=== PATIENT | male | born 1985 | race Caucasian/White ===

== ENCOUNTER 2017-11-02 08:19 | Emergency (ER) | payer OTHER ==
[2017-11-02 08:38] VITALS: BP 122/64
--- NOTE | 2017-11-02 08:46 | UC ---
Throat Pain/Nasal Yovani HPI - HPI Summary HPI Summary: cough / chest congestion x 4 days + sore throat , no fever, no chills + nasal congestion , pnd - History of Current Complaint Chief Complaint: UCRespiratory Stated Complaint: COUGH SORE THROAT Time Seen by Provider: 11/02/17 08:29 Hx Obtained From: Patient Onset/Duration: Gradual Onset, Lasting Days - 4, Still Present Severity: Moderate Cough: Nonproductive Associated Signs & Symptoms: Positive: Nasal Discharge. Negative: Sinus Discomfort, Fever, Rash - Allergies/Home Medications Allergies/Adverse Reactions: Allergies Allergy/AdvReac Type Severity Reaction Status Date / Time Amoxicillin Allergy Unknown Verified 11/02/17 08:39 Reaction Details Aspirin Allergy Unknown Verified 11/02/17 08:39 Reaction Details Cefaclor [From [facility]] Allergy Unknown Verified 11/02/17 08:39 Reaction Details Erythromycin Allergy Unknown Verified 11/02/17 08:39 Reaction Details Penicillins Allergy Unknown Verified 11/02/17 08:39 Reaction Details Home Medications: Home Medications Albuterol HFA INHALER* [Ventolin HFA Inhaler*] 2 puff INH Q4H PRN 11/02/17 [ History Confirmed 11/02/17] Fluticasone-Salmeterol 250-50* [Advair Diskus 250-50*] 1 puff INH BID 11/02/17 [ History Confirmed 11/02/17] oxyCODONE TAB* [Roxycodone TAB 5 mg*] 5 mg PO Q6H PRN 11/02/17 [History Confirmed 11/02/17] PMH/Surg Hx/FS Hx/Imm Hx Respiratory History: Asthma - Surgical History Surgical History: Yes Surgery Procedure, Year, and Place: pilon fracture. tonsillectomy - Family History Known Family History: Negative: Diabetes - Social History Alcohol Use: Occasionally Substance Use Type: None Smoking Status (MU): Never Smoked Tobacco Review of Systems Constitutional: Negative Skin: Negative Eyes: Negative ENT: Sore Throat, Nasal Discharge Respiratory: Cough Cardiovascular: Negative Gastrointestinal: Negative Is Patient Immunocompromised?: No All Other Systems Reviewed And Are Negative: Yes Physical Exam Triage Information Reviewed: Yes Appearance: Well-Appearing, No Pain Distress, Well-Nourished Vital Signs: Initial Vital Signs Temp 99 F 11/02/17 08:34 Pulse 67 11/02/17 08:34 Resp 18 11/02/17 08:34 BP 122/64 11/02/17 08:34 Pulse Ox 98 11/02/17 08:34 Vital Signs Reviewed: Yes Eyes: Positive: Conjunctiva Clear ENT: Positive: Normal ENT inspection, Hearing grossly normal, Pharynx normal, Nasal congestion, Nasal drainage, TMs normal Neck: Positive: Supple, Nontender, No Lymphadenopathy Respiratory: Positive: Chest non-tender, Lungs clear, Normal breath sounds Cardiovascular: Positive: RRR, No Murmur, Pulses Normal Abdominal Exam: Normal Skin Exam: Normal Throat Pain/Nasal Course/Dx - Differential Dx/Diagnosis Provider Diagnoses: URI Discharge - Discharge Plan Condition: Stable Disposition: HOME Patient Education Materials: Upper Respiratory Infection (ED) Referrals: LENORE Escalante [Primary Care Provider] - If Needed
== END 2017-11-02 08:48 | disposition home or self-care (01) ==
LOC: UCCORT 08:19
DX: J06.9 Acute upper respiratory infection, unspecified (principal); J45.909 Unspecified asthma, uncomplicated; Z72.89 Other problems related to lifestyle
CPT/HCPCS: 99201; G0463

== ENCOUNTER 2017-11-23 07:54 | Day surgery (SDC) | payer OTHER ==
[~2017-11-23 07:54] MED LIST: Buffered Lidocaine 0.9% SYRIN* 5 ML/SYR SYRINGE INTRADERM ONE; Dexamethasone IV* 4 MG/ML 1 ML (4 MG) IV SLOW PU ONE; Famotidine IV* 10 MG/ML 2 ML (20 mg) IV ONE
[2017-11-23] MEDS ORDERED: Dexamethasone IV* 4 MG/ML 1 ML (4 MG) ONE (08:00)
[2017-11-23] MEDS ORDERED: Famotidine IV* 10 MG/ML 2 ML (20 mg) ONE (08:00)
[2017-11-23] MEDS ORDERED: Buffered Lidocaine 0.9% SYRIN* 5 ML/SYR SYRINGE ONE ×2 (08:00→10:21)
[2017-11-23] MEDS ORDERED: Clindamycin 900 MG IVPREMIX(* 900 MG/50 ML SDV IV ONE (08:00)
[2017-11-23] MEDS ORDERED: Bupivacaine 0.5% SDV PF* 10-30ML VIAL ONE (10:28)
[2017-11-23] MEDS ORDERED: HYDROcodone/ACETAMIN 5-325 MG* 1 TAB PO PRN (10:31)
[2017-11-23] MEDS ORDERED: DiMENhydriNATE IV* 50 MG/ML VIAL IV PUSH PRN (10:31)
[2017-11-23] MEDS ORDERED: fentaNYL* 50 MCG/ML 2 ML VIAL (100 MCG VIAL) IV PRN (10:31)
[2017-11-23] MEDS ORDERED: PROCHLORPERAZINE INJ 5 MG/ML 2 ML VIAL IV PRN (10:31)
[2017-11-23] MEDS ORDERED: Naloxone* 0.4 MG/ML 1 ML VIAL IV PRN (10:31)
[2017-11-23] MEDS ORDERED: oxyCODONE/Acetamin 5/325 MG* TAB PO PRN (10:31)
[2017-11-23] MEDS ORDERED: Midazolam* 1 MG/ML 2 ML VIAL (2 MG) ONE (10:34)
[2017-11-23] MEDS ORDERED: Propofol* 10 MG/ML 20 ML BTL IV PUSH ONE (10:34)
[2017-11-23] MEDS ORDERED: fentaNYL* 50 MCG/ML 5 ML VIAL (250 MCG VIAL) ONE (10:34)
[2017-11-23] MEDS ORDERED: Lidocaine 2% PF * 5 ML VIAL ONE (10:34)
[2017-11-23] MEDS ORDERED: Ketorolac INJ* 30 MG/ML 1 ML VIAL ONE (11:03)
[2017-11-23] MEDS ORDERED: fentaNYL* 50 MCG/ML 2 ML VIAL (100 MCG VIAL) ONE ×3 (12:08→14:16)
[2017-11-23] MEDS ORDERED: KETAMINE HCL* 50 MG/ML 10 ML VIAL ONE (12:09)
[2017-11-23] MEDS ORDERED: Ondansetron INJ* 2 MG/ML VIAL ONE (12:20)
[2017-11-23] MEDS ORDERED: Flumazenil* 0.1 MG/ML 5 ML MDV ONE (13:32)
[2017-11-23] MEDS ORDERED: Metoprolol Tartrate IV* 1 MG/ML 5 ML VIAL ONE (14:31)
[2017-11-23] MEDS: Metoprolol Tartrate IV* 1 MG/ML 5 ML VIAL IV PRN ×2 (14:36→14:44)
[2017-11-23] MEDS ORDERED: oxyCODONE/Acetamin 5/325 MG* TAB ONE (15:27)
[2017-11-23 18:35] VITALS: BP 126/76
--- NOTE | 2017-11-24 07:16 | RAD ---
INDICATION: Left ankle removal of plate effusion tibial bone. COMPARISON: Comparison is made with a prior CT of the ankle from November 02, 2017. TECHNIQUE: 5.3 seconds of intermittent fluoroscopic guidance were provided and a single lateral film of the left ankle was obtained in the operating room. FINDINGS: The films demonstrates surgical intervention 2 surgical screws which project over the distal tibia. IMPRESSION: INTRAOPERATIVE CONTROL FILMS. CPT II Codes: 6045F
--- NOTE | 2017-11-24 13:33 | OP ---
OPERATIVE REPORT: DATE OF OPERATION: 11/23/17 DATE OF : 89 ATTENDING SURGEON: Taiwo Vasquez MD DRAMATIC DIRECTOR: Daily Sen PA-C DESCRIPTION OF PROCEDURE: The patient was taken to the operating room, where a longitudinal incision was made over the distal tibia. We exposed the length of the tibial plate with the electrocautery. The screws were removed with star and regular hex head screwdrivers and the plate removed as well. We then used a lamina field operations coordinator to open the tibiotalar joint. We curetted out any loose bone fragment s and debrided from the tibiotalar joint. Cultures were sent. Power bur was also used to prepare th e joint for arthrodesis. There was a bone defect probably 15-mm in thickness and so we shaped a femo ral head cancellous core to fit this defect. We also harvested tibial bone graft proximally at Gerdy' s tubercle, this was through a 4-cm longitudinal incision making a lateral corticotomy with a power b ur. Curetting the autograft in with the femoral head and some chips of allograft and DBX bone putty. We thoroughly grafted the defect. Proximally, we placed allograft chips into the tibial defect, david sing the periosteum with 2-0 Vicryl and lisa for the skin. We then fixed the tibiotalar fusion with paired 6.5 cannulated screws from the lateral talus up to th e medial tibial cortex. Good fixation and compression was obtained. We thoroughly irrigated closing with 0 Vicryl deep, 2-0 Vicryl subcu and lisa for the skin and a compression dressing and plaster splint applied. [id number]/[facility] [place] #: [id number]
== END 2017-11-23 18:30 | disposition home or self-care (01) ==
LOC: OR 07:54
PROVIDERS: ATTEND Orthopaedic Surgery
DX: M19.172 Post-traumatic osteoarthritis, left ankle and foot (principal); Z87.891 Personal history of nicotine dependence; J45.909 Unspecified asthma, uncomplicated; F41.8 Other specified anxiety disorders
CPT/HCPCS: 76000; 87070; 87073; 87205; 88300; 88304; 88311; A9270-GY; C1713; C1776; C9359; J1100; J1885; J2250; J2405; J2704; J3010; J3490

== ENCOUNTER 2018-07-20 15:51 | Emergency (ER) | payer OTHER ==
[2018-07-20 16:15] VITALS: BP 140/79
--- NOTE | 2018-07-20 16:37 | UC ---
Abdominal Pain Male HPI - HPI Summary HPI Summary: 33-year-old male comes in today with a complaint of abdominal pain. Pain started about a week ago tried around his bellybutton. It is worse with activity and lifting. Gets better with rest. No fevers or chills. Patient's been able to eat and drink is urinating normally he has normal bowel movements. I worse it's moderate to severe at times it is ALMOST GONE. He's had this on and off since he was 18 years old. He'll come for a few hours a few days and then go away. He has no prior abdominal surgeries. - History of Current Complaint Chief Complaint: UCGeneralIllness Stated Complaint: TENDER STOMACH (MID) Time Seen by Provider: 07/20/18 16:20 Pain Intensity: 4 - Allergies/Home Medications Allergies/Adverse Reactions: Allergies Allergy/AdvReac Type Severity Reaction Status Date / Time amoxicillin Allergy Unknown Verified 07/20/18 16:07 Reaction Details aspirin Allergy Unknown Verified 07/20/18 16:07 Reaction Details cefaclor [From Ceclor] Allergy Unknown Verified 07/20/18 16:07 Reaction Details erythromycin base Allergy Unknown Verified 07/20/18 16:07 Reaction Details Penicillins Allergy Unknown Verified 07/20/18 16:07 Reaction Details Home Medications: Home Medications Fluticasone/Vilanterol MDI(NF) [Breo Ellipta MDI 100/25(NF)] 1 puff DAILY [History Confirmed 07/20/18] PMH/Surg Hx/FS Hx/Imm Hx Previously Healthy: Yes - Surgical History Surgical History: Yes Surgery Procedure, Year, and Place: pilon fracture left ankle, 2015, hardware removed left ankle 11/2017-ankle fusion. tonsillectomy age 18. throat dilitation, 3-4 yrs ago - Family History Known Family History: Negative: Diabetes - Social History Alcohol Use: Occasionally Alcohol Amount: 3 per week Substance Use Type: None Smoking Status (MU): Former Smoker Amount Used/How Often: pack q 3 days for 5 yrs When Did the Patient Quit Smoking/Using Tobacco: 2010 Review of Systems Constitutional: Negative Skin: Negative Eyes: Negative ENT: Negative Respiratory: Negative Cardiovascular: Negative Gastrointestinal: Other - SEE HPI Genitourinary: Negative Motor: Negative Neurovascular: Negative Musculoskeletal: Negative Neurological: Negative Psychological: Negative Is Patient Immunocompromised?: No All Other Systems Reviewed And Are Negative: Yes Physical Exam Triage Information Reviewed: Yes Appearance: Well-Appearing, No Pain Distress, Well-Nourished Vital Signs: Initial Vital Signs Temp 98.1 F 07/20/18 16:09 Pulse 80 07/20/18 16:09 Resp 16 07/20/18 16:09 BP 140/79 07/20/18 16:09 Pulse Ox 97 07/20/18 16:09 Vital Signs Reviewed: Yes Eye Exam: Normal Eyes: Positive: Conjunctiva Clear ENT: Positive: Pharynx normal Neck exam: Normal Neck: Positive: Supple Respiratory: Positive: No respiratory distress Abdomen Description: Positive: Other: - Patient's tenderness is around his umbilicus. There is mild swelling in the area. It feels like an umbilical hernia. I manipulated it and it feels like it reduced. At its largest the area is approximately 5 cm in diameter. Bowel Sounds: Positive: Present Musculoskeletal Exam: Normal Musculoskeletal: Positive: Strength Intact, ROM Intact Neurological Exam: Normal Neurological: Positive: Alert, Muscle Tone Normal Psychological Exam: Normal Psychological: Positive: Age Appropriate Behavior Skin Exam: Normal Abd Pain Male Course/Dx - Course Course Of Treatment: No signs of incarcerated or strangulate it hernia at this time. Patient is not tender in the right upper quadrant or right lower quadrant to indicate gallbladder or the appendix causes pain. Tenderness was directly over the mass in the umbilical area consistent with an non- strangulated umbilical hernia that is reducible. I discussed hernias and the plan is to follow-up with surgery. I discussed that if he got worse and worse pain fevers vomiting he needed to go to the emergency department. - Differential Dx/Clinical Impression Provider Diagnoses: UMBILICAL HERNIA. ABDOMINAL PAIN Discharge - Sign-Out/Discharge Documenting (check all that apply): Patient Departure All imaging exams completed and their final reports reviewed: No Studies - Discharge Plan Condition: Stable Disposition: HOME Patient Education Materials: Umbilical Hernia (ED), Abdominal Pain (ED) Referrals: Valentin Noel MD [Medical Doctor] - Meet Cárdenas [Medical Doctor] - Additional Instructions: FOLLOW UP WITH SURGERY. GO TO THE EMERGENCY DEPARTMENT FOR ANY WORSENING OF YOUR CONDITION; PAIN, FEVER , VOMITING, YOU FEEL ILL OR QUESTIONS OR CONCERNS. - Billing Disposition and Condition Condition: STABLE Disposition: Home
== END 2018-07-20 16:51 | disposition home or self-care (01) ==
LOC: UCCORT 15:51
DX: R10.33 Periumbilical pain (principal); K42.9 Umbilical hernia without obstruction or gangrene; Z88.0 Allergy status to penicillin; Z88.6 Allergy status to analgesic agent; Z88.1 Allergy status to other antibiotic agents; Z87.891 Personal history of nicotine dependence
CPT/HCPCS: 99211; G0463

== ENCOUNTER 2019-07-16 18:49 | Emergency (ER) | payer OTHER ==
[2019-07-16 19:03] VITALS: BP 128/81
--- NOTE | 2019-07-16 19:09 | UC ---
Ear Complaint HPI - HPI Summary HPI Summary: 34-year-old male with a left earache over the past 2 or 3 days. He's had no upper respiratory illness symptoms. No history of ear infections however he does have a long list of antibiotic allergies. - History of Current Complaint Chief Complaint: UCEar Stated Complaint: EAR PAIN Time Seen by Provider: 07/16/19 19:00 Hx Obtained From: Patient Onset/Duration: Gradual Onset Severity Initially: Mild Severity Currently: Mild Pain Intensity: 5 Aggravating Factors: Nothing Alleviating Factors: Nothing - Patient did state that he had an itchy ear but he did not dig at it. - Allergies/Home Medications Allergies/Adverse Reactions: Allergies Allergy/AdvReac Type Severity Reaction Status Date / Time amoxicillin Allergy Unknown Verified 07/16/19 19:03 Reaction Details aspirin Allergy Unknown Verified 07/16/19 19:03 Reaction Details cefaclor [From Ceclor] Allergy Unknown Verified 07/16/19 19:03 Reaction Details erythromycin base Allergy Unknown Verified 07/16/19 19:03 Reaction Details Penicillins Allergy Unknown Verified 07/16/19 19:03 Reaction Details PMH/Surg Hx/FS Hx/Imm Hx Previously Healthy: Yes Respiratory History: Asthma Psychological History: Anxiety - Surgical History Surgical History: Yes Surgery Procedure, Year, and Place: pilon fracture left ankle, 2016, hardware removed left ankle 11/2017-ankle fusion. tonsillectomy age 18. throat dilitation, 3-4 yrs ago - Family History Known Family History: Negative: Diabetes - Social History Alcohol Use: Occasionally Alcohol Amount: 3 per week Substance Use Type: None Smoking Status (MU): Former Smoker Amount Used/How Often: pack q 3 days for 5 yrs When Did the Patient Quit Smoking/Using Tobacco: 2010 Review of Systems All Other Systems Reviewed And Are Negative: Yes ENT: Positive: Ear Ache - Left earache for the past 2 or 3 days Is Patient Immunocompromised?: No Physical Exam Triage Information Reviewed: Yes Appearance: Well-Appearing, No Pain Distress, Well-Nourished Vital Signs: Initial Vital Signs Temp 98.7 F 07/16/19 19:00 Pulse 81 07/16/19 19:00 Resp 15 07/16/19 19:00 BP 128/81 07/16/19 19:00 Pulse Ox 100 07/16/19 19:00 Vital Signs Reviewed: Yes Eyes: Positive: Conjunctiva Clear ENT: Positive: Pharynx normal, TM red - Left tympanic membrane with erythema and bulging., Other Neck: Positive: Supple, Nontender, No Lymphadenopathy Respiratory: Positive: Lungs clear, Normal breath sounds, No respiratory distress, No accessory muscle use Cardiovascular: Positive: RRR, No Murmur, Pulses Normal, Brisk Capillary Refill Musculoskeletal Exam: Normal Neurological Exam: Normal Psychological Exam: Normal Skin Exam: Normal Ear Complaint Course/Dx - Course Course Of Treatment: Patient is comfortable here. I am going to put him on doxycycline 100 mg by mouth twice a day 10 days with the first dose being given here at the urgent care Center. He is to follow-up with his primary care provider in 3 or 4 days if no improvement. He may take Tylenol for pain. - Differential Dx/Diagnosis Provider Diagnosis: Left otitis media Discharge ED - Sign-Out/Discharge Documenting (check all that apply): Patient Departure All imaging exams completed and their final reports reviewed: No Studies - Discharge Plan Condition: Good Disposition: HOME Prescriptions: DOXYcycline CAP(*) [DOXYcycline 100MG CAP(*)] 100 mg PO BID 10 Days #20 cap Patient Education Materials: Ear Infection (ED) Referrals: Federico Ma PA [Primary Care Provider] - Additional Instructions: Increase fluids, no dairy products, antacids or multivitamins 2 hours before you take the doxycycline or 2 hours after bridge be sure and take it with food. Follow-up with your primary care provider if no improvement in 3 or 4 days. May take Tylenol for pain. - Billing Disposition and Condition Condition: GOOD Disposition: Home
[2019-07-16] MEDS ORDERED: DOXYcycline CAP(*) 100 MG PO ONE (19:11)
== END 2019-07-16 19:17 | disposition home or self-care (01) ==
LOC: UCCORT 18:49
DX: H66.92 Otitis media, unspecified, left ear (principal); J45.909 Unspecified asthma, uncomplicated; Z88.0 Allergy status to penicillin; Z88.1 Allergy status to other antibiotic agents; Z88.8 Allergy status to other drugs, medicaments and biological substances; Z87.891 Personal history of nicotine dependence
CPT/HCPCS: 99212; A9270-GY; G0463

== ENCOUNTER 2019-11-29 07:56 | Emergency (ER) | payer OTHER ==
[2019-11-29 08:23] VITALS: BP 111/77
[2019-11-29 08:38] LABS: Influenza A Molecular POSITIVE (Negative)
--- NOTE | 2019-11-29 08:47 | UC ---
Respiratory Complaint HPI - HPI Summary HPI Summary: 34 y/o male with medical hx of asthma 2 days hx of productive cough , sore throat, fever chills, and severe body aches been taking otc meds and Tylenol with minimal improvements - History of Current Complaint Chief Complaint: UCGeneralIllness Stated Complaint: COUGH, CONGESTION, ACHY Time Seen by Provider: 11/29/19 08:27 Hx Obtained From: Patient Onset/Duration: Gradual Onset, Lasting Days - 2, Still Present Timing: Constant Severity Initially: Moderate Severity Currently: Moderate Pain Intensity: 3 Character: Cough: Productive Aggravating Factors: Exertion, Deep Breaths Alleviating Factors: Nothing Associated Signs And Symptoms: Positive: Fever, Chills, URI, Nasal Congestion - Allergies/Home Medications Allergies/Adverse Reactions: Allergies Allergy/AdvReac Type Severity Reaction Status Date / Time amoxicillin Allergy Unknown Verified 11/29/19 08:23 Reaction Details aspirin Allergy Unknown Verified 11/29/19 08:23 Reaction Details cefaclor [From Ceclor] Allergy Unknown Verified 11/29/19 08:23 Reaction Details erythromycin base Allergy Unknown Verified 11/29/19 08:23 Reaction Details Penicillins Allergy Unknown Verified 11/29/19 08:23 Reaction Details Home Medications: Home Medications Albuterol 0.5% CONC NEB.CHEVY* [Albuterol 0.5ol*] 1 mg .SEE ORDER ONCE PRN [History Confirmed 11/29/19] Fluticasone/Vilanterol MDI(NF) [Breo Ellipta MDI (NF)] 1 puff INH DAILY [History Confirmed 11/29/19] PMH/Surg Hx/FS Hx/Imm Hx Respiratory History: Asthma Psychological History: Anxiety - Surgical History Surgical History: Yes Surgery Procedure, Year, and Place: pilon fracture left ankle, 2016, hardware removed left ankle 11/2017-ankle fusion. tonsillectomy age 18. throat dilitation, 3-4 yrs ago - Family History Known Family History: Negative: Diabetes - Social History Alcohol Use: Rare Alcohol Amount: 3 per week Substance Use Type: None Smoking Status (MU): Former Smoker Amount Used/How Often: pack q 3 days for 5 yrs When Did the Patient Quit Smoking/Using Tobacco: 2010 Review of Systems All Other Systems Reviewed And Are Negative: Yes Constitutional: Positive: Fever, Chills, Fatigue Skin: Positive: Negative Eyes: Positive: Negative ENT: Positive: Sore Throat, Nasal Discharge Respiratory: Positive: Cough Musculoskeletal: Positive: Arthralgia, Myalgia Is Patient Immunocompromised?: No Physical Exam Triage Information Reviewed: Yes Appearance: Well-Appearing, No Pain Distress, Well-Nourished Vital Signs: Initial Vital Signs Temp 100.1 F 11/29/19 08:18 Pulse 99 11/29/19 08:18 Resp 18 11/29/19 08:18 BP 111/77 11/29/19 08:18 Pulse Ox 98 11/29/19 08:18 Vital Signs Reviewed: Yes Eye Exam: Normal Eyes: Positive: Conjunctiva Clear ENT: Positive: Normal ENT inspection, Hearing grossly normal, Pharyngeal erythema, TMs normal. Negative: Nasal drainage Neck: Positive: Supple, Nontender, No Lymphadenopathy Respiratory: Positive: Chest non-tender, Lungs clear, Normal breath sounds, No respiratory distress Cardiovascular: Positive: RRR, No Murmur, Pulses Normal Skin Exam: Normal Respiratory Course/Dx - Differential Dx/Diagnosis Provider Diagnosis: Influenza Discharge ED - Sign-Out/Discharge Documenting (check all that apply): Patient Departure All imaging exams completed and their final reports reviewed: No Studies - Discharge Plan Condition: Stable Disposition: HOME Prescriptions: Oseltamivir SUSP 75 MG dose* [Tamiflu SUSP 75 MG dose*] 75 mg PO BID #10 oral.syrin Patient Education Materials: Influenza (DC) Forms: *Work Release Referrals: Federico Ma PA [Primary Care Provider] - If Needed - Billing Disposition and Condition Condition: STABLE Disposition: Home
== END 2019-11-29 08:50 | disposition home or self-care (01) ==
LOC: UCCORT 07:56
DX: J11.1 Influenza due to unidentified influenza virus with other respiratory manifestations (principal); J45.909 Unspecified asthma, uncomplicated; Z88.0 Allergy status to penicillin; Z88.6 Allergy status to analgesic agent; Z88.1 Allergy status to other antibiotic agents; Z79.899 Other long term (current) drug therapy; Z87.891 Personal history of nicotine dependence
CPT/HCPCS: 99212; G0463